=== PATIENT | female | born 1975 | race Hispanic/Latino ===

== ENCOUNTER 2021-03-23 16:21 | Observation (INO) | payer BC ==
[~2021-03-23] VITALS: Ht 167.6 cm; Wt 86.2 kg
[2021-03-23 16:38] LABS: BASOPHILS # (AUTO) 0.1 (0.0-0.1); BASOPHILS % 0.6 % (0.0-1.0); EOSINOPHILS # (AUTO) 0.2 (0.0-0.4); EOSINOPHILS % 1.8 % (0.0-6.0); HEMATOCRIT 34.6 % (34.2-44.1); HEMOGLOBIN 11.6 g/dL (12.0-16.0); LYMPHOCYTES # (AUTO) 1.6 (1.0-3.2); LYMPHOCYTES % 18.6 % (18.0-39.1); MEAN CORPUSCULAR HEMOGLOBIN 29.2 pg (28-32); MEAN CORPUSCULAR HGB CONC 33.5 g/dL (31-35); MEAN CORPUSCULAR VOLUME 87.2 fL (81-99); MONOCYTES # (AUTO) 0.7 (0.2-0.8); MONOCYTES % 8.1 % (4.4-11.3); NEUTROPHILS # (AUTO) 5.9 (2.1-6.9); NEUTROPHILS % 70.5 % (38.7-80.0); PLATELET COUNT 265 x10e3/uL (140-360); RED BLOOD COUNT 3.97 x10e6/uL (3.6-5.1); RED CELL DISTRIBUTION WIDTH 13.3 % (11.7-14.4)
[2021-03-23 16:47] LABS: CLARITY,URINE SL CLOUDY (CLEAR); COLOR,URINE YELLOW (YELLOW); KETONES,URINE NEGATIVE (NEGATIVE); LEUKOCYTE ESTERASE ,URINE SMALL (NEGATIVE); NITRITE,URINE NEGATIVE (NEGATIVE); PROTEIN,URINE DIPSTICK NEGATIVE (NEGATIVE); URINE UROBILINOGEN 2 mg/dL (0.2 - 1)
[2021-03-23 16:48] LABS: INR 1.03; PROTHROMBIN TIME 13.7 seconds (11.9-14.5)
[2021-03-23 16:59] LABS: ALANINE AMINOTRANSFERASE 10 IU/L (0-55); ALBUMIN 3.6 g/dL (3.5-5.0); ALBUMIN/GLOBULIN RATIO 0.9 (0.8-2.0); ALKALINE PHOSPHATASE 59 IU/L (40-150); ANION GAP 12.6 mmol/L (8-16); BLOOD UREA NITROGEN 9 mg/dL (7-26); BUN/CREATININE RATIO 11 (6-25); CALCIUM 8.8 mg/dL (8.4-10.2); CARBON DIOXIDE 20 mmol/L (22-29); CHLORIDE 110 mmol/L (98-107); CREATINE KINASE 44 IU/L (29-168); CREATININE, SERUM 0.82 mg/dL (0.57-1.11); EST GLOMERULAR FILTRATION RATE 75 ML/MIN (60-); GLUCOSE 95 mg/dL (74-118); POTASSIUM 3.6 mmol/L (3.5-5.1); SODIUM 139 mmol/L (136-145)
[2021-03-23 17:06] LABS: BACTERIA,URINE FEW /HPF; EPITHELIAL CELLS,URINE FEW /LPF; MUCUS,URINE FEW (RARE); TRICHOMONAS,URINE RARE
[2021-03-23] MEDS: SODIUM CHLORIDE 0.9% 1000ML 1,000 ML IV SCH (20:07)
[2021-03-23 21:50] VITALS: BP 125/67
[2021-03-23] MEDS ORDERED: SODIUM CHLORIDE 0.9% 50ML 50 ML ONE (22:24)
[2021-03-23] MEDS ORDERED: IOPAMIDOL 370 MG/ML 200 ML INFUS..BTL INJ ONE (22:24)
[2021-03-23] MEDS ORDERED: BISACODYL 5 MG TAB EC PO STA (22:35)
[2021-03-23] MEDS ORDERED: BISACODYL 5 MG TAB EC PO ONE (23:30)
[2021-03-24] VITALS (8 sets, daily range): BP systolic 109–125; BP diastolic 67–80
[2021-03-24 01:05] LABS: HEMATOCRIT 32.9 % (34.2-44.1); HEMOGLOBIN 10.8 g/dL (12.0-16.0)
[2021-03-24 04:04] LABS: % IRON SATURATION 19 % (15-50); IRON 75 ug/dL (50-170); TOTAL IRON BINDING CAPACITY 389 ug/dL (261-478); TRANSFERRIN 278 mg/dL (180-382)
[2021-03-24] MEDS ORDERED: CITRATE OF MAGNESIA 300ML BOTTLE PO ONE ×2 (05:00)
[2021-03-24] MEDS: SODIUM CHLORIDE 0.9% 1000ML 1,000 ML IV SCH ×2 (05:31→22:45)
[2021-03-24 06:26] LABS: HEMATOCRIT 33.5 % (34.2-44.1); HEMOGLOBIN 11.1 g/dL (12.0-16.0)
[2021-03-24 12:15] LABS: HEMATOCRIT 35.4 % (34.2-44.1); HEMOGLOBIN 11.4 g/dL (12.0-16.0)
[2021-03-24 20:43] LABS: HEMATOCRIT 35.3 % (34.2-44.1); HEMOGLOBIN 11.3 g/dL (12.0-16.0)
[2021-03-24] MEDS ORDERED: MESALAMINE 1,000 MG SUPP RC SCH (21:00)
[2021-03-25 00:15] VITALS: BP 126/75
[2021-03-25 00:22] VITALS: BP 126/75
[2021-03-25] MEDS ORDERED: CITRATE OF MAGNESIA 300ML BOTTLE PO ONE ×2 (05:00)
[2021-03-25] MEDS: SODIUM CHLORIDE 0.9% 1000ML 1,000 ML IV SCH (05:11)
[2021-03-25 05:18] VITALS: BP 118/73
[2021-03-25 06:35] LABS: HEMATOCRIT 34.2 % (34.2-44.1); HEMOGLOBIN 11.1 g/dL (12.0-16.0)
[2021-03-25 07:07] VITALS: BP 117/71
[2021-03-25 08:01] VITALS: BP 117/71
[2021-03-25 11:12] VITALS: BP 113/71
== END 2021-03-25 14:45 | disposition home or self-care (01) ==
LOC: ER 16:38 → ERHOLD 19:32 → INTOOBSV 19:32 → MED/SURG2 21:32
PROVIDERS: ADMIT Internal Medicine; ATTEND Internal Medicine
DX: K57.31 Diverticulosis of large intestine without perforation or abscess with bleeding (principal); D12.5 Benign neoplasm of sigmoid colon; D12.3 Benign neoplasm of transverse colon; K62.89 Other specified diseases of anus and rectum; K64.8 Other hemorrhoids; D64.9 Anemia, unspecified; Z20.822 Contact with and (suspected) exposure to COVID-19
CPT/HCPCS: 36415 ×3; 45384; 45385; 74174; 80053; 81001; 81025; 82550; 82553; 82607; 82746; 83540; 84466; 84484; 85014 ×2; 85018 ×2; 85025; 85045; 85610; 85730; 87086; 88305; 96360; 96361 ×2; 99284; C9113; G0378 ×3; J7030 ×2; Q9967; U0002